=== PATIENT | male | born 1985 | race Caucasian/White ===

== ENCOUNTER 2017-04-19 08:54 | Emergency (ER) | payer SELFPAY ==
[2017-04-19 09:03] VITALS: BP 124/66; PULSE 67; TEMP 98.4; O2SAT 100
[2017-04-19] MEDS ORDERED: MUPI2OIN TOPICAL (09:52)
[2017-04-19] MEDS ORDERED: ACYC800T PO (09:52)
[2017-04-19] MEDS ORDERED: BACT800T5 PO (09:52)
--- NOTE | 2017-04-19 09:52 | PD ---
HPI Chief Complaint: Skin Problem Time Seen by Provider: 09:51 Travel History International Travel<30 days: No Contact w/Intl Traveler<30days: No Traveled to known affect area: No History of Present Illness HPI 31-year-old male presents to emergency department for evaluation of a pruritic rash in his left axilla. Patient states that in there over the last 10 days or so. He states it started out as small red bumps but they have increased a little pustules. He is concerned he may have an infection. Patient denies a new exposures. No deodorants. No shaving. Has no other symptoms to report. PFSH Past Medical History Medical History: Denies Significant Hx Diminished Hearing: No Hepatitis: Yes (C) Medical other: Yes (IV DRUG USER) Immunizations Current: No ?: Not Past Surgical History Surgical History: No Previous Surgery Social History Alcohol Use: Yes (QUIT X 2 MONTHS ) Tobacco Use: No (QUIT X 2 MONTHS ) Substance Use: No (HX HEROIN DRUG USER /IV DRUG USER. QUIT X 2 MOS , PT WENT TO REHAB ) Allergies-Medications (Allergen,Severity, Reaction): Coded Allergies: No Known Allergies (Unverified , 04/19/17) Reported Meds & Prescriptions Reported Meds & Active Scripts Active Acyclovir 800 Mg Tab 800 Mg PO 5 TIMES A DAY 7 Days Mupirocin Topical (Mupirocin) 2 % Oint 1 Applic TOPICAL BID Bactrim DS (Sulfamethoxazole-Trimethoprim) 800-160 Mg Tab 1 Tab PO BID Review of Systems Except as stated in HPI: all other systems reviewed are Neg Physical Exam Narrative GENERAL: Well-nourished, well-developed male patient in no acute distress SKIN: Focused skin assessment warm/dry. Papular rash, varying in size in the left axilla. I do not see any pustules. No vesicles. No scabbing. HEAD: Normocephalic. EYES: No scleral icterus. No injection or drainage. NECK: Supple, trachea midline. No JVD or lymphadenopathy. CARDIOVASCULAR: Regular rate and rhythm without murmurs, gallops, or rubs. RESPIRATORY: Breath sounds equal bilaterally. No accessory muscle use. Data Data Last Documented VS Vital Signs Date Time Temp Pulse Resp B/P Pulse Ox O2 Delivery O2 Flow Rate FiO2 04/19/17 09:03 98.4 67 124/66 100 MDM Medical Decision Making Medical Screen Exam Complete: Yes Emergency Medical Condition: Yes Medical Record Reviewed: Yes Differential Diagnosis Impetigo versus folliculitis versus contact dermatitis versus shingles Narrative Course 31-year-old male presents to emergency department for evaluation of a pruritic rash in his left axilla. Physical exam is consistent with a folliculitis with mild skin infection. Patient is concerned that this may be shingles. I'll start him on topical antibiotics and will offer him acyclovir as well. He is encouraged follow-up with primary care provider. He agrees to return immediately with any acute worsening symptoms. Diagnosis Primary Impression: Impetigo follicularis Referrals: Triage Technician Primary Care Physician Patient Instructions: Folliculitis (ED), General Instructions Additional Instructions: Avoid scratching the area Keep it clean and dry No deodorants or creams until the area is healed Follow-up with the primary care provider Return immediately with any acute worsening of symptoms Med/Other Pt SpecificInfo: Prescription(s) given Scripts Acyclovir 800 Mg [id number] Mg PO 5 TIMES A DAY 7 Days Ref 0 Prov:Gaby Calhoun 04/19/17 Mupirocin Topical 2 % Oint1 Applic TOPICAL BID #1 TUBE Ref 0 Prov:Gaby Calhoun 04/19/17 Sulfamethoxazole-Trimethoprim (Bactrim DS)800-160 Mg Tab1 Tab PO BID #20 TAB Ref 0 Prov:Gaby Calhoun 04/19/17 Disposition: 01 DISCHARGE HOME Condition: Stable Gaby Calhoun Apr 19, 2017 09:52
== END 2017-04-19 10:09 | disposition home or self-care (01) ==
LOC: NEPK 08:54
DX: L01.02 Bockhart's impetigo (principal); Z79.899 Other long term (current) drug therapy
CPT/HCPCS: 99284

== ENCOUNTER 2017-06-10 13:47 | Emergency (ER) | payer SELFPAY ==
[~2017-06-10 13:47] MED LIST: ACYC800T PO; BACT800T5 PO; MUPI2OIN TOPICAL
[2017-06-10 13:49] VITALS: BP 123/84; TEMP 98.4; O2SAT 99
--- NOTE | 2017-06-10 14:23 | PD ---
HPI . recurrent rash to left axilla and medication refill Chief Complaint: Skin Problem Time Seen by Provider: 14:14 Travel History International Travel<30 days: No Contact w/Intl Traveler<30days: No Traveled to known affect area: No History of Present Illness HPI 31 yr old male here with a recurrent rash to his left axilla. He tells me it is not bothering him, but he wants to know exactly what it is. He also requests a refill of his effexor. PFSH Past Medical History Diminished Hearing: No Hepatitis: Yes (C) Immunizations Current: No Social History Alcohol Use: Yes (QUIT X 2 MONTHS ) Tobacco Use: No (QUIT X 2 MONTHS ) Substance Use: No (HX HEROIN DRUG USER /IV DRUG USER. QUIT X 2 MOS , PT WENT TO REHAB ) Allergies-Medications (Allergen,Severity, Reaction): Coded Allergies: No Known Allergies (Unverified , 04/19/17) Reported Meds & Prescriptions Reported Meds & Active Scripts Active Acyclovir 800 Mg Tab 800 Mg PO 5 TIMES A DAY 7 Days Mupirocin Topical (Mupirocin) 2 % Oint 1 Applic TOPICAL BID Bactrim DS (Sulfamethoxazole-Trimethoprim) 800-160 Mg Tab 1 Tab PO BID Review of Systems General / Constitutional: No: Fever Eyes: No: Visual changes HENT: No: Headaches Cardiovascular: No: Chest Pain or Discomfort Respiratory: No: Shortness of Breath Gastrointestinal: No: Abdominal Pain Genitourinary: No: Dysuria Musculoskeletal: No: Pain Skin: No Rash Neurologic: No: Weakness Psychiatric: No: Depression Endocrine: No: Polydipsia Hematologic/Lymphatic: No: Easy Bruising Physical Exam Narrative GENERAL: AAO x 3, no acute distress, Well-nourished, well-developed patient. SKIN: Warm and dry. No visible rashes or bruising. pink macules to left axilla without any gross abnormality HEAD: Normocephalic and atraumatic. EYES: No scleral icterus. No injection or drainage. ENT: No nasal drainage noted. Mucous membranes pink. Airway patent. NECK: Supple, trachea midline. No JVD. CARDIOVASCULAR: Regular rate and rhythm without murmurs, gallops, or rubs. RESPIRATORY: Breath sounds equal bilaterally. No accessory muscle use. No rhonchi or rales. GASTROINTESTINAL: visual inspection normal EXTREMITIES: No cyanosis or edema. BACK: No obvious deformity. NEURO: CN II-12 intact, g PSYCH: AAO x 3, normal affect. Data Data Last Documented VS Vital Signs Date Time Temp Pulse Resp B/P (MAP) Pulse Ox O2 Delivery O2 Flow Rate FiO2 06/10/17 13:49 98.4 86 15 123/84 (97) 99 MDM Medical Decision Making Medical Screen Exam Complete: Yes Emergency Medical Condition: No Medical Record Reviewed: Yes Differential Diagnosis contact dermatitis, medication refill, less likely shingles Narrative Course A medical screening exam was performed: At the time of evaluation the presenting medical condition was determined not to be of an emergent nature. The patient was given the option of receiving additional care, but declined. Patient was given options for additional community resources from which to obtain care. The Patient Has Been advised to seek medical attention for their presenting complaint. The patient has been advised to return to the ER at any time if an emergent condition develops. ED financial counselor to assist with appointment. Diagnosis Primary Impression: Encounter for medical screening examination Condition: Stable Christina Rapp Jun 10, 2017 14:23
== END 2017-06-10 14:37 | disposition left against medical advice (07) ==
LOC: NEPD 13:47
DX: R21 Rash and other nonspecific skin eruption (principal); Z86.19 Personal history of other infectious and parasitic diseases; Z79.899 Other long term (current) drug therapy
CPT/HCPCS: 99281

== ENCOUNTER 2017-06-23 09:04 | Emergency (ER) | payer SELFPAY ==
[~2017-06-23] VITALS: Ht 180.3 cm; Wt 70.0 kg
[2017-06-23 09:07] VITALS: BP 140/80; PULSE 70; RESP 16; TEMP 98.1; O2SAT 98
[2017-06-23] MEDS ORDERED: VENL75TA PO (09:27)
--- NOTE | 2017-06-23 09:35 | PD ---
HPI Chief Complaint: Injury Time Seen by Provider: 09:25 Travel History International Travel<30 days: No Contact w/Intl Traveler<30days: No Traveled to known affect area: No History of Present Illness HPI Patient complains of injury to his left ankle. Duration one day. Severity is moderate. 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 He can't put weight on it. No alleviating factors PFSH Past Medical History Diminished Hearing: No Hepatitis: Yes (C) Immunizations Current: No Tetanus Vaccination: Unknown Social History Alcohol Use: Yes (QUIT X 2 MONTHS ) Tobacco Use: No (QUIT X 2 MONTHS ) Substance Use: No (HX HEROIN DRUG USER /IV DRUG USER. QUIT X 2 MOS , PT WENT TO REHAB ) Allergies-Medications (Allergen,Severity, Reaction): Coded Allergies: No Known Allergies (Unverified , 04/19/17) Reported Meds & Prescriptions Reported Meds & Active Scripts Active Reported Effexor (Venlafaxine HCl) 75 Mg Tab 75 Mg PO DAILY Review of Systems General / Constitutional: No: Fever Eyes: No: Visual changes HENT: No: Headaches Cardiovascular: No: Chest Pain or Discomfort Respiratory: No: Shortness of Breath Gastrointestinal: No: Abdominal Pain Genitourinary: No: Dysuria Musculoskeletal: Positive: Pain Skin: No Rash Neurologic: No: Weakness Psychiatric: No: Depression Endocrine: No: Polydipsia Hematologic/Lymphatic: No: Easy Bruising Physical Exam Narrative SKIN: Focused skin assessment reveals no rash or ulcers. Skin is warm and dry. Palpation shows no induration or nodules. Psych: Normal mood and affect. Normal insight and judgment. Left ankle: Swelling of the lateral malleolus with tenderness. There is also swelling over the dorsum of the foot. Neurovascularly intact Data Data Last Documented VS Vital Signs Date Time Temp Pulse Resp B/P (MAP) Pulse Ox O2 Delivery O2 Flow Rate FiO2 06/23/17 09:23 99 06/23/17 09:07 98.1 70 16 140/80 (100) Orders Orders Ankle, Complete ([id number]) (06/23/17 ) Foot, Complete ([id number]) (06/23/17 ) Crutches (06/23/17 10:48) Splint Or Brace Apply/Monitor (06/23/17 10:48) MDM Medical Decision Making Medical Screen Exam Complete: Yes Emergency Medical Condition: Yes Medical Record Reviewed: Yes Differential Diagnosis Ankle fracture, foot fracture, ankle sprain Narrative Course I have reviewed the patient's electronic medical record. I reviewed his left foot x-rays which show soft tissue swelling without fracture I reviewed his left ankle x-rays which show soft tissue swelling without fracture Gave him crutches and a stirrup splint Supportive care discussed Diagnosis Primary Impression: Inversion sprain of left ankle Qualified Codes: S93.402A - Sprain of unspecified ligament of left ankle, initial encounter Additional Instructions: ice and elevate and limit weightbearing until pain free The patient was advised to follow up with their physician and return if they worsen. Med/Other Pt SpecificInfo: Other Disposition: 01 DISCHARGE HOME Condition: Stable Ranjeet Hamlin MD Jun 23, 2017 09:35
--- NOTE | 2017-06-23 09:49 | RADRPT ---
EXAM DATE/TIME: 06/23/2017 09:37 [facility] COMPARISON: FOOT LEFT COMPLETE ([id number]), June 23, 2017, 9:39. INDICATIONS : Patient fell skating. Complains of left ankle pain and swelling. MEDICAL HISTORY : None. SURGICAL HISTORY : None. ENCOUNTER: Initial ACUITY: 1 day PAIN SCORE: 4/10 LOCATION: Left Ankle FINDINGS: There is soft tissue swelling seen laterally. A fracture is not seen. The ankle is normally aligned. CONCLUSION: Lateral soft tissue swelling. Mitch Rome MD on June 23, 2017 at 9:46 Board Certified Radiologist. This report was verified electronically.
--- NOTE | 2017-06-23 09:49 | RADRPT ---
EXAM DATE/TIME: 06/23/2017 09:39 [facility] COMPARISON: No previous studies available for comparison. INDICATIONS : Patient fell skating. Complains of left foot pain. MEDICAL HISTORY : None. SURGICAL HISTORY : None. ENCOUNTER: Initial ACUITY: 1 day PAIN SCORE: 4/10 LOCATION: Left Foot FINDINGS: No fracture is seen. The bones and joints are normally aligned. There is soft tissue swelling seen la terally at the ankle. CONCLUSION: Lateral ankle soft tissue swelling. Mitch Rome MD on June 23, 2017 at 9:47 Board Certified Radiologist. This report was verified electronically.
== END 2017-06-23 11:14 | disposition home or self-care (01) ==
LOC: NEPD 09:04
DX: S93.402A Sprain of unspecified ligament of left ankle, initial encounter (principal); Z86.19 Personal history of other infectious and parasitic diseases; X50.1XXA Overexertion from prolonged static or awkward postures, initial encounter; Z79.899 Other long term (current) drug therapy
CPT/HCPCS: 73610; 73630; 99283; E0113; L1906

== ENCOUNTER 2017-11-26 19:25 | Emergency (ER) | payer SELFPAY ==
[~2017-11-26 19:25] MED LIST changes: -ACYC800T PO; -BACT800T5 PO; -MUPI2OIN TOPICAL; +VENL75TA PO
[2017-11-26 19:28] VITALS: BP 152/82; PULSE 67; RESP 16; TEMP 99; O2SAT 99
[2017-11-26] MEDS ORDERED: DOXY100C PO (19:44)
[2017-11-26] MEDS ORDERED: IBUP1TAB7 PO (19:44)
[2017-11-26] MEDS ORDERED: TETANUS/DIPHTHERIA TOXOID ADULT 0.5 ML VIAL IM ONE (19:45)
[2017-11-26] MEDS ORDERED: DOXYCYCLINE HYCLATE 100 MG CAP PO ONE (19:45)
--- NOTE | 2017-11-26 19:50 | PD ---
HPI Chief Complaint: Laceration/Skin Injury Time Seen by Provider: 19:42 Travel History International Travel<30 days: No Contact w/Intl Traveler<30days: No Traveled to known affect area: No History of Present Illness HPI 32-year-old uuycu-yarq-zulwjiri male presents for evaluation of a laceration to the right thumb pad. It was sustained at 1 PM today when he was working in [place] using a weed razor to trim weeds. He reports that the razor slipped and he cut his finger. He continued working and this is why he comes in several hours after the accident occurred. He reports a throbbing pain associated with a laceration. It is worse with palpation. Denies any numbness , tingling, range of motion limitation. His last tetanus vaccination is unknown. He has no other complaints at this time. [facility] Past Medical History Diminished Hearing: No Hepatitis: Yes (C) Immunizations Current: No Social History Alcohol Use: Yes (QUIT X 2 MONTHS ) Tobacco Use: No (QUIT X 2 MONTHS ) Substance Use: No (HX HEROIN DRUG USER /IV DRUG USER. QUIT X 2 MOS , PT WENT TO REHAB ) Allergies-Medications (Allergen,Severity, Reaction): Coded Allergies: No Known Allergies (Unverified , 04/19/17) Reported Meds & Prescriptions Reported Meds & Active Scripts Active Ibuprofen 800 Mg Tab 800 Mg PO Q6HR PRN Doxycycline Hyclate 100 Mg Cap 100 Mg PO BID 7 Days Reported Effexor (Venlafaxine HCl) 75 Mg Tab 75 Mg PO DAILY Review of Systems General / Constitutional: No: Fever, Chills Musculoskeletal: Positive: Pain, No: Limited ROM Skin: Positive Other (positive for laceration, pain, bleeding) Neurologic: No: Paresthesia Physical Exam Narrative GENERAL: Well-developed well-nourished male in no acute distress SKIN: Warm and dry. There is a 1.5 cm linear well approximately laceration to the thumb pad of the right hand. CARDIOVASCULAR: Regular rate and rhythm. No murmur appreciated. RESPIRATORY: No accessory muscle use. Clear to auscultation. Breath sounds equal bilaterally. Extremities: As noted above. The patient maintains full range of motion at the MCP and PI joints of the right thumb. Distal sensation is preserved. Capillary refill less than 2 seconds. Data Data Last Documented VS Vital Signs Date Time Temp Pulse Resp B/P (MAP) Pulse Ox O2 Delivery O2 Flow Rate FiO2 11/26/17 19:28 99.0 67 16 152/82 (105) 99 Orders Orders Doxycycline (Vibramycin) (11/26/17 19:45) Wound Care (11/26/17 19:42) Tetanus/Diphtheria Tox Adult (Tetanus/Di (11/26/17 19:45) MDM Medical Decision Making Medical Screen Exam Complete: Yes Emergency Medical Condition: Yes Medical Record Reviewed: Yes Differential Diagnosis Finger laceration, open fracture, tissue avulsion Narrative Course 32-year-old male presents 7 hours after sustaining a linear well approximated laceration to the right thumb pad in [place]. Given the mechanism of injury in dirty [place], delayed presentation, recommended healing by secondary intention as there would be little to again in terms of cosmetic value but increased risk of infection if closed primarily at this time. Tetanus status updated. I did recommend x-ray imaging of the right thumb and the patient is declining at this time. Wound will be thoroughly irrigated and local wound care provided. He will be started on doxycycline, first dose provided today. I recommended return for recheck in 2-3 days and I discussed signs and symptoms of infection that would warrant returning sooner. He is stable for discharge. Diagnosis Primary Impression: Laceration of right thumb Additional Instructions: Wash the wound twice a day with soap and water and apply antibiotic cream and loose bandages. Do not wrap tightly. Take the medication as prescribed. Return in 2-3 days for wound recheck. Med/Other Pt SpecificInfo: Prescription(s) given, Wound Care Scripts Ibuprofen (Ibuprofen) 800 Mg Tab 800 MG PO Q6HR Y for PAIN, #40 TAB 0 Refills Prov: Fred House MD 11/26/17 Doxycycline Hyclate (Doxycycline Hyclate) 100 Mg Cap 100 MG PO BID for Infection for 7 Days, #14 CAP 0 Refills Prov: Fred House MD 11/26/17 Disposition: 01 DISCHARGE HOME Condition: Stable Michael Snyder Nov 26, 2017 19:49
== END 2017-11-26 20:25 | disposition home or self-care (01) ==
LOC: NEPK 19:25
DX: S61.011A Laceration without foreign body of right thumb without damage to nail, initial encounter (principal); W29.3XXA Contact with powered garden and outdoor hand tools and machinery, initial encounter; Y92.828 Other wilderness area as the place of occurrence of the external cause; Z86.19 Personal history of other infectious and parasitic diseases; Z87.891 Personal history of nicotine dependence; Z79.899 Other long term (current) drug therapy
CPT/HCPCS: 90471; 90714

== ENCOUNTER 2017-12-17 17:46 | Emergency (ER) | payer SELFPAY ==
[~2017-12-17] VITALS: Ht 180.3 cm; Wt 70.5 kg
[~2017-12-17 17:46] MED LIST changes: +DOXY100C PO; +IBUP1TAB7 PO
[2017-12-17 17:51] VITALS: BP 114/69; PULSE 77; RESP 18; TEMP 98.1; O2SAT 100
[2017-12-17] MEDS ORDERED: AMOX500T PO (19:07)
--- NOTE | 2017-12-17 19:07 | PD ---
HPI Chief Complaint: Cold / Flu Symptoms Time Seen by Provider: 19:08 Travel History International Travel<30 days: No Contact w/Intl Traveler<30days: No Traveled to known affect area: No History of Present Illness HPI 32-year-old male here with left lower dental pain 3 days. He denies fever or chills. He reports a decayed and pressure to the site of pain. Symptom severity is mild. Aggravated by chewing, heat, cold. No alleviating factors. PFSH Past Medical History Medical History: Denies Significant Hx Diminished Hearing: No Hepatitis: Yes (C) Immunizations Current: No Social History Alcohol Use: Yes (QUIT X 2 MONTHS ) Tobacco Use: No (QUIT X 2 MONTHS ) Substance Use: No (HX HEROIN DRUG USER /IV DRUG USER. QUIT X 2 MOS , PT WENT TO REHAB ) Allergies-Medications (Allergen,Severity, Reaction): Coded Allergies: No Known Allergies (Unverified , 04/19/17) Reported Meds & Prescriptions Reported Meds & Active Scripts Active Amoxicillin 500 Mg Tab 500 Mg PO TID 10 Days Ibuprofen 800 Mg Tab 800 Mg PO Q6HR PRN Doxycycline Hyclate 100 Mg Cap 100 Mg PO BID 7 Days Reported Effexor (Venlafaxine HCl) 75 Mg Tab 75 Mg PO DAILY Review of Systems Except as stated in HPI: all other systems reviewed are Neg Physical Exam Narrative GENERAL: Alert and well-appearing 32-year-old male SKIN: Warm and dry. HEAD: Normocephalic. EYES: No injection or drainage. Mouth: Left lower molar decayed with surrounding gum erythema and mild swelling. No swelling of the floor of mouth. Uvula is midline. Airway is patent. NECK: Supple Data Data Last Documented VS Vital Signs Date Time Temp Pulse Resp B/P (MAP) Pulse Ox O2 Delivery O2 Flow Rate FiO2 12/17/17 17:51 98.1 77 18 114/69 (84) 100 Orders Orders Ed Discharge Order (12/17/17 19:08) MDM Medical Decision Making Medical Screen Exam Complete: Yes Emergency Medical Condition: Yes Differential Diagnosis Dental abscess, dental caries, periodontal disease Narrative Course 32-year-old male here with left lower dental pain. He'll be treated for dental infection. Diagnosis Primary Impression: Dental infection Referrals: Dentist Additional Instructions: Follow-up with the dentist Tylenol or ibuprofen as needed for pain. Scripts Amoxicillin (Amoxicillin) 500 Mg Tab 500 MG PO TID for Infection for 10 Days, TAB 0 Refills Prov: Catrachita Baig 12/17/17 Disposition: 01 DISCHARGE HOME Condition: Stable Catrachita Baig Dec 17, 2017 19:07
== END 2017-12-17 19:31 | disposition home or self-care (01) ==
LOC: NEPK 17:46
DX: K04.7 Periapical abscess without sinus (principal); Z79.899 Other long term (current) drug therapy; Z87.891 Personal history of nicotine dependence; Z86.19 Personal history of other infectious and parasitic diseases
CPT/HCPCS: 99283

== ENCOUNTER 2018-02-16 23:09 | Emergency (ER) | payer SELFPAY ==
[~2018-02-16] VITALS: Ht 180.3 cm; Wt 70.0 kg
[~2018-02-16 23:09] MED LIST changes: +AMOX500T PO
[2018-02-16 23:20] VITALS: BP 110/74; PULSE 59; RESP 18; TEMP 98.3; O2SAT 99
[2018-02-16] MEDS ORDERED: IBUP-232 PO (23:48)
[2018-02-16] MEDS ORDERED: PENI500T PO (23:48)
--- NOTE | 2018-02-16 23:48 | PD ---
HPI Chief Complaint: Oral / Dental Pain or Problem Time Seen by Provider: 23:44 Travel History International Travel<30 days: No Contact w/Intl Traveler<30days: No Traveled to known affect area: No History of Present Illness HPI 32-year-old male patient with previous history of dental infections and a wisdom tooth that has been causing him problems in the left mandibular area, here because of several days history of increased swelling and discomfort. He denies any trouble swallowing, fevers, or other symptoms. He states that he has had trouble trying to get into a dentist. Modifying Factors: None Associated Signs & Symptoms: Increased dental pain, swelling in the left mandibular molar Risk Factors: Previous history of this PFSH Past Medical History Diminished Hearing: No Hepatitis: Yes (C) Immunizations Current: No Tetanus Vaccination: < 5 Years Influenza Vaccination: No Past Surgical History Surgical History: No Previous Surgery Social History Alcohol Use: Yes (occasionally) Tobacco Use: Yes Substance Use: No (hx if IV drug use) Allergies-Medications (Allergen,Severity, Reaction): Coded Allergies: No Known Allergies (Unverified Adverse Reaction, Unknown, 02/16/18) Reported Meds & Prescriptions Reported Meds & Active Scripts Active Amoxicillin 500 Mg Tab 500 Mg PO TID 10 Days Ibuprofen 800 Mg Tab 800 Mg PO Q6HR PRN Doxycycline Hyclate 100 Mg Cap 100 Mg PO BID 7 Days Reported Effexor (Venlafaxine HCl) 75 Mg Tab 75 Mg PO DAILY Review of Systems Except as stated in HPI: all other systems reviewed are Neg Physical Exam Narrative GENERAL: Well-nourished, well-developed well-developed young male patient in mild distress. Awake and oriented 3. SKIN: Focused skin assessment warm/dry. HEAD: Normocephalic. EYES: No scleral icterus. No injection or drainage. DENTAL: No loose or chipped teeth. No malocclusion. No submandibular fullness. There is mild fulminant and edema of the left mandibular gingiva, there is notable pus drainage from the left mandibular wisdom tooth area with no palpable fluctuance surrounding at this time. NECK: Supple, trachea midline. No JVD or lymphadenopathy. CARDIOVASCULAR: Regular rate and rhythm without murmurs, gallops, or rubs. RESPIRATORY: Breath sounds equal bilaterally. No accessory muscle use. GASTROINTESTINAL: Abdomen soft, non-tender, nondistended. MUSCULOSKELETAL: No cyanosis, or edema. BACK: Nontender without obvious deformity. No CVA tenderness. Data Data Last Documented VS Vital Signs Date Time Temp Pulse Resp B/P (MAP) Pulse Ox O2 Delivery O2 Flow Rate FiO2 02/16/18 23:20 98.3 59 18 110/74 (86) 99 MDM Medical Decision Making Medical Screen Exam Complete: Yes Emergency Medical Condition: Yes Medical Record Reviewed: Yes Differential Diagnosis Dental abscess Narrative Course There does appear to be a dental abscess and it is self draining. There is no signs of airway compromise, no submandibular fullness, and at this point, appears to be fairly uncomplicated. My plan would be to give him antibiotics, ibuprofen, and refer him to see a dentist. Return for any worsening in pain, swelling, new issues as needed. The plan has been discussed with him and he states understanding. Diagnosis Primary Impression: Dental abscess Med/Other Pt SpecificInfo: Prescription(s) given Scripts Ibuprofen (Ibuprofen) 600 Mg Tab 600 MG PO Q6H Y for Pain/Inflammation, #20 TAB 0 Refills Prov: Kay Dinh MD 02/16/18 Penicillin V Potassium (Penicillin V Potassium) 500 Mg Tab 500 MG PO Q6H for Infection for 7 Days, #28 TAB 0 Refills Prov: Kay Dinh MD 02/16/18 Disposition: 01 DISCHARGE HOME Condition: Stable Kay Dinh MD February 16, 2018 23:48
== END 2018-02-17 | disposition home or self-care (01) ==
LOC: NEPC 23:09
DX: K04.7 Periapical abscess without sinus (principal); B19.20 Unspecified viral hepatitis C without hepatic coma; Z72.0 Tobacco use
CPT/HCPCS: 99283